=== PATIENT | male | born 1955 | race Caucasian/White ===

== ENCOUNTER → 2018-03-02 | Outpatient (CLI) | payer OTHER | LOC: FIMAGING 15:34 | DX: Z98.1 Arthrodesis status (principal); M43.16 Spondylolisthesis, lumbar region; M84.88 Other disorders of continuity of bone, other site; Z87.81 Personal history of (healed) traumatic fracture ==

== ENCOUNTER 2018-07-12 11:53 | Emergency (ER) | payer OTHER ==
[2018-07-12 12:03] VITALS: BP 138/95
--- NOTE | 2018-07-12 12:08 | EDPHY ---
H & P Stated Complaint: L knee pain after fall thursday Time Seen by Provider: 07/12/18 12:02 - Medical/Surgical History Hx Asthma: No Hx Chronic Respiratory Disease: No Hx Diabetes: No Hx Cardiac Disease: Yes Hx Renal Disease: No Hx Cirrhosis: No Hx Alcoholism: No Hx HIV/AIDS: No Hx Splenectomy or Spleen Trauma: No Other PMH: Spinal decrompression surgery 2013. Fusion L5-S1 - 2015. Chronic headaches. [place] 2010. - Social History Smoking Status: Never smoked Constitutional: Initial Vital Signs Temperature (C) 36.6 C 07/12/18 11:57 Heart Rate 80 07/12/18 11:57 Respiratory Rate 16 07/12/18 11:57 Blood Pressure 138/95 H 07/12/18 11:57 O2 Sat (%) 96 07/12/18 11:57 O2 Delivery Mode Room Air Allergies/Adverse Reactions: Iodinated Contrast- Oral and IV Dye [IV Dye, Iodine Containing] Allergy (Severe , Verified 07/12/18 11:54) Home Medications: Medication Instructions Recorded Asa Unk Dose 11/29/12 Crestor Unk Dose 11/29/12 Nitro Unk Dose 11/29/12 Plavix Unk Dose 11/29/12 methylPREDNISolone [Medrol Dose 1 each PO AD #1 ea 12/07/17 Aldo] oxyCODONE IR [Oxycodone Ir (*)] 5 - 10 mg PO Q6 PRN #20 tab 12/07/17 Rivaroxaban [Xarelto 15mg (*)] 15 mg PO BID #42 tab 07/12/18 Rivaroxaban [Xarelto] 20 mg PO DAILY #67 tab 07/12/18 Medical Decision Making - Diagnostics Imaging Results: Imaging Impressions Extremity Venous Study 07/12/18 12:04 Impression: Partial nonocclusive deep venous thrombosis involving the left femoral vein, left popliteal vein, and left posterior tibial vein which given the patient's history probably represents acute on chronic deep venous thrombosis. Findings and recommendations discussed with Emergency Department physician, Simone Thomas MD at 12:50 hours, 07/12/2018. Final report concurs with initial preliminary interpretation. Imaging: Discussed imaging studies w/ train caller Radiologist, I viewed and interpreted images myself ED Course/Re-evaluation: CHIEF COMPLAINT: Left knee injury HISTORY OF PRESENT ILLNESS: The patient is a 63 y/o with a history of a degenerative lower back and DVT s/p lumbar surgery complaining of a left knee injury. Since the DVT his left leg has been 1 inch larger than his right. On Thursday, 3 days ago, he fell an hit his left knee upon impact. Since the fall he has had pain with extension and flexion of the left knee. He also noticed that his left knee is more swollen which has not been alleviated with rest, ice and elevation. He is concerned that he has another DVT. No fever, headache, body aches, lightheadedness, chest pain, heart palpitations, shortness of breath, cough, abdominal pain, urinary or bowel complaints, numbness, paresthesias. REVIEW OF SYSTEMS: A 10 point review of systems was performed and is negative with the exception of the elements mentioned in the history of present illness. PHYSICAL EXAM: HR, BP, O2 Sat, RR. Temp noted General Appearance: Alert, well hydrated, appropriate, and non-toxic appearing. Head: Atraumatic without scalp tenderness or obvious injury Eyes: Pupils equal, round, reactive to light and accommodation, EOMI, no trauma , no injection. Ears: Clear bilaterally, no perforation, normal landmarks Nose: Atraumatic, no rhinorrhea, clear. Throat: There is no erythema or exudates, no lesions, normal tonsils, mucus membranes moist. Neck: Supple, 2+ carotid upstroke, nontender, no lymphadenopathy. Respiratory: No retractions, no distress, no wheezes, and no accessory muscle use. Lungs are clear to auscultation bilaterally. Cardiovascular: Regular rate and rhythm, no murmurs, rubs, or gallops. Bilateral carotid, radial, dorsalis pedis, and posterior tibial pulses intact. Good capillary refill all extremities. Gastrointestinal: Abdomen is soft, nontender, non-distended, no masses, no rebound, no guarding, no peritoneal signs. Musculoskeletal: Left knee swelling, decreased ROM, santoyo's cyst present. Otherwise normal active ROM of all extremities, atraumatic. Neurological: Alert, appropriate, and interactive. The patient has normal DTRs and non-focal cranial nerves, motor, sensory, and cerebellar exam. Skin: No rashes, good turgor, no nodules on palpation. Past medical history: Degenerative lower back, DVT Past surgical history: 2 surgeries including fusion lumbar spine Family history: Noncontributory Social history: Single, employed, does not abuse tobacco drugs or alcohol DIAGNOSTICS/PROCEDURES/CRITICAL CARE TIME: Left knee x-ray: No acute osseous findings. Left lower extremity US: Acute on chronic left lower extremity DVT DIFFERENTIAL DIAGNOSIS: The differential diagnosis for the patient's knee injury included but was not limited to fracture, ligamentous injury, contusion, muscular strain, and meniscus injury. MEDICAL DECISION MAKING: The patient is a 63 y/o with a history of a degenerative lower back and DVT s/p lumbar surgery complaining of a left knee injury 3 days ago. On exam he has left knee internal derangement. Left knee x-ray and lower extremity US ordered. 1248: I spoke with Dr. Mata, radiologist, regarding patient's lower extremity US. Patient has an acute on chronic left lower extremity DVT. We will need to anticoagulate the patient with Xarelto. 1259: I reviewed patient's left knee x-ray which reveals no acute osseous findings. 1307: Reassessed patient and discussed imaging findings. I have discussed plan for Xarelto which he is comfortable with. Return precautions provided; patient is comfortable with this plan. Departure - Departure Disposition: Home, Routine, Self-Care Clinical Impression: Left leg DVT Qualifiers: Affected thrombotic vein of extremity: unspecified vein of extremity Chronicity : acute Qualified Code(s): I82.402 - Acute embolism and thrombosis of unspecified deep veins of left lower extremity Condition: Good Instructions: Deep Vein Thrombosis (ED), Deep Vein Thrombosis Prevention (ED) Additional Instructions: 1. You have a acute on chronic left lower extremity DVT. 2. Take Xarelto as prescribed. 3. Return to the emergency department for worsening pain, swelling, numbness, weakness, chest pain, shortness of breath or other concerns. Referrals: Wild Correa MD [Primary Care Provider] - As per Instructions Prescriptions: Rivaroxaban [Xarelto 15mg (*)] 15 mg PO BID #42 tab Rivaroxaban [Xarelto] 20 mg PO DAILY #67 tab Report Scribed for: Simone Thomas Report Scribed by: Janna Gomez Date of Report: 07/12/18 Time of Report: 12:06
== END 2018-07-12 13:19 | disposition home or self-care (01) ==
DX: I82.402 Acute embolism and thrombosis of unspecified deep veins of left lower extremity (principal)